=== PATIENT | male | born 1985 | race African-American/Black ===

== ENCOUNTER → 2021-11-28 | Day surgery (SDC) | payer OTHER ==
[~2021-11-28] VITALS: Ht 180.3 cm; Wt 101.0 kg
[~2021-11-28] MED LIST: CALC200T3 PO; IV RINGERS,LACTATED 1000ML 1,000 ML IV SCH; LANS15TA6 PO; LIDOCAINE 2% PF 5 ML VIAL. ONE; LISI1TAB37 PO; MAG355OR11 PO; PROPOFOL 10 MG/ML (20ML) VIAL. IV ONE
[2021-11-28 07:50] VITALS: BP 122/76
--- NOTE | 2021-11-28 13:01 | CONS ---
DATE OF CONSULTATION: 11/28/2021 UPDATED HISTORY AND PHYSICAL REASON FOR CONSULTATION: Intractable heartburn, dysphagia. HISTORY OF PRESENT ILLNESS: A 36-year-old male whose past medical history is significant for hypertension, gastroesophageal reflux disease, seen with intractable symptoms. He has had chronic reflux, which has been controlled until recently with Prilosec 20 mg daily. He has subsequently been experiencing food bolus impactions in the distal esophagus. Risk factors for reflux are positive for caffeine, but negative for alcohol, nicotine. Weight is actually increased 10 pounds with continued issues despite medical therapy. Passed on additional medical therapy. PAST MEDICAL HISTORY: Hypertension, gastroesophageal reflux disease. ALLERGIES: MALARIA SHOT. MEDICATIONS: Include Tums, Prevacid, lisinopril, hydrochlorothiazide, and Maalox. FAMILY AND SOCIAL HISTORY: Significant for hypertension with his mother and grandmother, stroke with his grandmother. SOCIAL HISTORY: He is an ex-drinker and ex-smoker. PAST SURGICAL HISTORY: Noncontributory. REVIEW OF SYSTEMS: Per records. PHYSICAL EXAMINATION: GENERAL: Reveals a well-nourished, well-developed male who is alert, cooperative, no acute distress. LUNGS: Clear. CARDIOVASCULAR: Reveals an S1, S2, without S3, S4 or appreciable murmur. ABDOMEN: Reveals a soft abdomen, normal bowel sounds, without appreciable hepatosplenomegaly. EXTREMITIES: No cyanosis, clubbing or edema. IMPRESSION AND PLAN: Dysphagia and gastroesophageal reflux disease, most likely secondary to chronic reflux, Bowen's malignancy, achalasia, eosinophilic esophagitis, Schatzki's ring in the differential. We will recommend upper endoscopy, possible biopsy and dilatation. Risks and benefits have been previously discussed with the patient including risk of hemorrhage and perforation and is willing to proceed. JOSE DR: Nick TID: [id number]
--- NOTE | 2021-11-30 17:08 | PATHOLOGY ---
[facility] Accession Number: [id number] . 01 Material submitted: . esophagus - DISTAL ESOPHAGUS BIOPSY R/O RIZVI'S. Modifiers: distal . 01 Clinical history: . ABD PAIN EGD . 02 Diagnosis: Esophageal biopsies, distal esophagus: - Reflux changes. (JPM:oscar; 11/30/2021) S 11/30/2021 1234 Local . 02 Comment: Sections of the distal esophageal biopsy reveal multiple segments of hyperplastic squamous esophageal mucosa. The findings are consistent with reflux changes. There is no evidence of Rizvi's change, dysplasia, or malignancy. (JPM:oscar; 11/30/2021) . 02 Electronically signed: . London Ball MD, Pathologist NPI- [id number] . 01 Gross description: . The specimen is received in formalin, labeled "Velasquez Valle, distal esophagus bx R/O Barretts" and consists of multiple pandya irregular tissues aggregating 0.6 x 0.4 x 0.1 cm which are filtered and submitted in toto in A1.([place]; 11/29/2021) DKA/DKA 11/29/2021 1210 Local . 02 Pathologist provided ICD-10: R10.9 . 02 CPT . 709543 Specimen Comment: A courtesy copy of this report has been sent to [phone] Specimen Comment: Report sent to Performed at: 01 [facility] [address], [place] [id number] MD Amrit Baltazar MD Phone: [phone] Performed at: 02 [facility] [address] [place], [place] [id number] MD London Ball MD Phone: [phone]
== END | disposition home or self-care (01) ==
LOC: ENDOS 06:38 → EEVIPCON 07:30
PROVIDERS: ATTEND Internal Medicine Gastroenterology
DX: R12 Heartburn (principal); R13.10 Dysphagia, unspecified; R10.9 Unspecified abdominal pain; K21.00 Gastro-esophageal reflux disease with esophagitis, without bleeding; K31.89 Other diseases of stomach and duodenum; I10 Essential (primary) hypertension; Z87.891 Personal history of nicotine dependence; Z79.899 Other long term (current) drug therapy; Z98.890 Other specified postprocedural states; Z88.8 Allergy status to other drugs, medicaments and biological substances
CPT/HCPCS: 43239; 43450; J2704